=== PATIENT | male | born 1990 ===

== ENCOUNTER 2017-09-05 07:15 | Emergency (ER) | payer MEDICAID ==
--- NOTE | 2017-09-05 08:12 | C.PDOC ---
History Of Present Illness 27 y/o male presents to ED with c/o fever, sore throat, and body ache that began yesterday. Denies lethargy, headache, dizziness, neck pain, drooling, dysphagia, dyspnea, CP, SOB, wheezing, abd. pain, N/V/D, back pain, UTI sx. Ambulate to Ed for evaluation, not in any apparent distress. Time Seen by Provider: 09/05/17 07:54 Chief Complaint (Nursing): Fever History Per: Patient History/Exam Limitations: no limitations Onset/Duration Of Symptoms: Hrs Current Symptoms Are (Timing): Still Present Sick Contacts (Context): None Associated Symptoms: Fever, Sore Throat, Other (body ache). denies: Chills, Cough, Vomiting, Diarrhea Recent travel outside of the [place]: No Past Medical History Reviewed: Historical Data, Nursing Documentation, Vital Signs Vital Signs: Last Vital Signs Temp 97.8 F 09/05/17 08:36 Pulse 82 09/05/17 08:36 Resp 18 09/05/17 08:36 BP 106/66 09/05/17 08:36 Pulse Ox 100 09/05/17 08:36 - Medical History PMH: No Chronic Diseases Surgical History: No Surg Hx Family History: States: No Known Family Hx - Social History Hx Alcohol Use: No Hx Substance Use: No Review Of Systems Constitutional: Positive for: Fever. Negative for: Chills ENT: Positive for: Other (Sore throat ) Respiratory: Negative for: Cough Gastrointestinal: Negative for: Nausea, Vomiting, Abdominal Pain, Diarrhea Musculoskeletal: Positive for: Other (body aches) Neurological: Negative for: Weakness, Numbness Physical Exam - Physical Exam Appears: Well, Non-toxic, No Acute Distress Skin: Normal Color, Warm, Dry, No Rash Head: Normacephalic Eye(s): bilateral: PERRL Ear(s): Bilateral: Normal Nose: No Flaring, Discharge (B/L nasal congestion with scant clear rhinorrhea) Oral Mucosa: Moist, No Drooling Tongue: Normal Appearing Lips: Normal Appearing Throat: Erythema (pharyngeal ), No Drooling Neck: Trachea Midline, Supple Chest: Symmetrical, No Tenderness Cardiovascular: Rhythm Regular Respiratory: No Decreased Breath Sounds, No Accessory Muscle Use, No Rales, No Rhonchi, No Stridor, No Wheezing Gastrointestinal/Abdominal: Soft, No Tenderness Extremity: No Deformity, No Swelling Neurological/Psych: Oriented x3, Normal Speech, Normal Cognition ED Course And Treatment O2 Sat by Pulse Oximetry: 97 (RA) Pulse Ox Interpretation: Normal Progress Note: Administered Tamiflu, Tylenol, and predniSONE. On re-eval, pt is afebrile, hemodynamicaly stable. Non-toxic. Tolerate Po well in ED. PulsEOx 100% RA. ENT: no acute findings. neck: SUpple, (-) lymphodenopathy. Lungs: CTA B/L, BS equal B/L. neurologicaly intact. Pt has clinical findings c /w Influenza-like illness. Pt advised. ref. to f/u with PMD in 2-3 days for re-eavl. return if any new changes. Disposition Counseled Patient/Family Regarding: Diagnosis, Need For Followup, Rx Given - Disposition Referrals: [facility] [Outside] Disposition: HOME/ ROUTINE Disposition Time: 08:20 Condition: STABLE Additional Instructions: ENCOURAGE FLUIDS TAKE MEDICATION PRESCRIBED FOLLOW UP WITH PMD IN 2-3 DAYS FOR RE-EVALUATION. RETURN TO ED IF ANY WORSENING OR NEW CHANGES. 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 - Scribe Statement The provider has reviewed the documentation as recorded by the Ulysses Mcclellan All medical record entries made by the Tiaibjulio were at my direction and personally dictated by me. I have reviewed the chart and agree that the record accurately reflects my personal performance of the history, physical exam, medical decision making, and the department course for this patient. I have also personally directed, reviewed, and agree with the discharge instructions and disposition.
[2017-09-05 08:37] VITALS: BP 106/66; PULSE 82; RESP 18; TEMP 97.8
[2017-09-05 08:57] VITALS: O2SAT 97
== END 2017-09-05 09:00 | disposition home or self-care (01) ==
LOC: MERGE 07:15 → C.ER 07:15
DX: J11.1 Influenza due to unidentified influenza virus with other respiratory manifestations (principal)